=== PATIENT | female | born 1980 ===

== ENCOUNTER → 2016-10-19 | Outpatient (CLI) | payer OTHER ==
--- NOTE | 2016-10-19 15:40 | XR ---
Left foot and left ankle HISTORY: Left ankle sprain, pain, trauma 3 views of the left foot and 3 views of the ankle are submitted. No comparisons Bone mineralization, joint spaces and alignment are maintained. There is a small plantar calcaneal sp ur. Soft tissue swelling noted about the left ankle. IMPRESSION: No fracture or dislocation of the left foot or ankle.
== END ==
LOC: RADXRMAIN 15:13
PROVIDERS: ATTEND Emergency Medicine
DX: S93.402A Sprain of unspecified ligament of left ankle, initial encounter (principal); S93.602A Unspecified sprain of left foot, initial encounter

== ENCOUNTER → 2016-12-11 | Outpatient (CLI) | payer MEDICARE ==
--- NOTE | 2016-12-11 07:49 | US ---
EXAMINATION TYPE: US abdomen complete DATE OF EXAM: 12/11/2016 COMPARISON: NONE CLINICAL HISTORY: R10.11 RUQ PAIN. EXAM MEASUREMENTS: Liver Length: 12.7 cm Gallbladder Wall: 0.2 cm CBD: 0.2 cm Spleen: 9.4 cm Right Kidney: 10.2 x 4.2 x 4.5 cm Left Kidney: 9.9 x 4.9 x 4.6 cm Pancreas: Obscured by bowel gas Liver: wnl Gallbladder: Within the gallbladder neck there is a 1 cm area of hyperechogenicity that creates some shadowing, although this does not appear to be calcified. There is no adjacent gallbladder wall thic kening. Additionally this does appear to be mobile on the supine gallbladder images. Evidence for sonographic Smith's sign: No CBD: wnl Spleen: wnl Right Kidney: wnl Left Kidney: wnl Upper IVC: upper pole obscured by overlying bowel gas Abd Aorta: bifurcation obscured by overlying bowel gas, otherwise wnl The liver is homogenous. The intrahepatic portion of the IVC and proximal abdominal aorta are within normal limits. Common bile duct is unremarkable. The visualized portions of the pancreas are homoge nous. The spleen is unremarkable. Kidneys are symmetric and free of hydronephrosis. No renal lesio ns are seen. IMPRESSION: 1. Focal 1 cm lesion within the gallbladder creating only minimal shadowing. This does appear to be m obile and may represent a cholesterol containing noncalcified gallstone, tumefactive sludge, or less likely gallbladder polyp. Correlation with CT or any prior examinations would be recommended. Alterna tively short-term follow-up could be performed in 6 months for further evaluation as there is no curr ent evidence for acute cholecystitis.
== END | disposition home or self-care (01) ==
LOC: RADUSWWP 06:59
PROVIDERS: ATTEND Family Medicine
DX: K82.8 Other specified diseases of gallbladder (principal); R10.11 Right upper quadrant pain
CPT/HCPCS: 76700

== ENCOUNTER → 2017-01-01 | Outpatient (CLI) | payer MEDICARE ==
--- NOTE | 2017-01-01 09:40 | NM ---
EXAMINATION TYPE: NM hepatobiliary w EF DATE OF EXAM: 01/01/2017 COMPARISON: 05/11/2008 HISTORY: Right upper quadrant pain TECHNIQUE: After the intravenous administration of 5.5 mCi Tc 99m Mebrofenin hepatobiliary scintigrap hy is performed. Immediate images post injection. FINDINGS: There is satisfactory initial accumulation of tracer by the liver. The gallbladder is visualized wit hin 14 minutes. The small bowel activity is noted within 22 minutes. At one hour 8 ounces of oral e nsure plus is given to mimic CCK and gallbladder ejection fraction is calculated at 60 %, in the norm al range. Therefore there is no scintigraphic evidence of cystic or common bile duct obstruction to suggest acute cholecystitis or gallbladder dyskinesia. IMPRESSION: Exam is within normal limits.
== END | disposition home or self-care (01) ==
LOC: RADNMMAIN 06:59
PROVIDERS: ATTEND Family Medicine
DX: R10.11 Right upper quadrant pain (principal)
CPT/HCPCS: 78226; A9537

== ENCOUNTER → 2017-09-27 | Outpatient (CLI) | payer MEDICARE, OTHER ==
--- NOTE | 2017-09-27 16:36 | US ---
EXAMINATION TYPE: Transabdominal DATE OF EXAM: 07/27/17 COMPARISON: NONE CLINICAL HISTORY: O09.521 Supervision of elderly multigravida, EXAM PERFORMED: Transvaginal (TV) and Transabdominal (TA) EXAM MEASUREMENTS: GESTATIONAL AGE / DATING Physician Established: Not yet established Dates by LMP: LMP unknown Dates by First Scan: No previous this is first scan Dates by Current Scan for: (6 weeks/2 days) EDC: 05/21/2018 MATERNAL ANATOMY Uterus: 9.3 x 5.9 x 4.6cm Right Ovary: 3.2 x 2.4 x 1.8cm Left Ovary: 1.7 x 1.6 x 1.7cm Post CDS / Adnexa: wnl Presence of free fluid: no Presence of corpus luteal cyst: best seen in left ovary by TV US = 1.7 x 1.6 x 1.6cm Presence of subchorionic bleed: no GESTATION / SURVEY CRL: 0.6 (6 weeks/2 days) Yolk Sac (normal less than 6mm): 3.7mm Heart Rate: 101 bpm Rhythm: Normal IUP: Viable early IUP Date of LMP: unknown Beta HcG (if available): NA Single, live, IUP,6 weeks/2 days, EDC: 05/21/2018; HR 101bpm. IMPRESSION: Single viable intrauterine corresponding to ultrasound age 6 weeks 2 days with estimated da te of delivery May 21, 2018
== END | disposition home or self-care (01) ==
LOC: RADUSWWP 15:34
PROVIDERS: ATTEND Obstetrics & Gynecology
DX: O09.521 Supervision of elderly multigravida, first trimester (principal); Z3A.00 Weeks of gestation of pregnancy not specified
CPT/HCPCS: 76801; 76817

== ENCOUNTER 2017-10-29 16:46 | Emergency (ER) | payer MEDICARE, OTHER ==
--- NOTE | 2017-10-29 17:33 | ED ---
Female Urogenital HPI - General Source: patient, RN notes reviewed Mode of arrival: ambulatory Limitations: no limitations <Anh Nichols - Last Filed: 10/29/17 20:41> <Virgilio Leung - Last Filed: 11/02/17 15:26> - General Chief complaint: Vaginal Bleeding Stated complaint: Vaginal Bleeding-10 wks Time Seen by Provider: 10/29/17 17:20 - History of Present Illness Initial comments: This is a 37-year-old female who presents to the emergency department with chief complaint of vaginal bleeding. Patient states that she is currently 10 weeks . She states that she sees Dr. Keenan. Patient states that at approximately 4 PM she was taking a shower. She noticed some mild vaginal bleeding. She states that she is currently no longer bleeding. Patient also states that she has been more nauseous and has had more vomiting today than she normally has had. She denies any abdominal pain, fevers or chills, chest pain or shortness of breath, dysuria or hematuria. (Anh Nichols) - Related Data Home Medications Medication Instructions Recorded Confirmed Famotidine [Pepcid] 20 mg PO BID 10/29/17 10/29/17 Pnv No.95/Ferrous Fum/Folic AC 1 tab PO DAILY 10/29/17 10/29/17 [ Multivitamin Tablet] Allergies Allergy/AdvReac Type Severity Reaction Status Date / Time amoxicillin [From Augmentin] AdvReac Nausea & Verified 10/29/17 18:42 Vomiting clavulanic acid AdvReac Nausea & Verified 10/29/17 18:42 [From Augmentin] Vomiting Review of Systems ROS Other: All systems not noted in ROS Statement are negative. <Anh Nichols - Last Filed: 10/29/17 20:41> ROS Other: All systems not noted in ROS Statement are negative. <Virgilio Leung - Last Filed: 11/02/17 15:26> ROS Statement: Those systems with pertinent positive or pertinent negative responses have been documented in the HPI. Past Medical History Past Medical History: No Reported History History of Any Multi-Drug Resistant Organisms: None Reported Past Surgical History: Tonsillectomy Additional Past Surgical History / Comment(s): foot and eye surgery Past Psychological History: Bipolar Smoking Status: Former smoker Past Alcohol Use History: None Reported Past Drug Use History: None Reported <[place] LuisBrian manzanoAnh M - Last Filed: 10/29/17 20:41> General Exam Limitations: no limitations <Anh Nichols - Last Filed: 10/29/17 20:41> <Virgilio Leung - Last Filed: 11/02/17 15:26> - General Exam Comments Initial Comments: General: Awake and alert, well-developed; in no apparent distress. HEENT: Head atraumatic, normocephalic. Pupils are equal, round and reactive to light. Extraocular movements intact. Oropharynx moist without erythema or exudate. Neck: Supple. Normal ROM. Cardiovascular: Regular rate and rhythm. No murmurs, rubs or gallops. Chest symmetrical. Respiratory: Lungs clear to auscultation bilaterally. No wheezes, rales or rhonchi. Normal respiratory effort with no use of accessory muscles. Abdomen: Soft, non-tender, non-distended. No rigidity, rebound or guarding. Normal bowel sounds in all 4 quadrants. Musculoskeletal: Normal ROM, no tenderness bilateral upper and lower extremities. Ambulating normally. Skin: [place], warm and dry without rashes or lesions. Neurological: Alert and oriented x3. CN II-XII grossly intact. Speech is fluent and answers are appropriate. No focal neuro deficits. Psychiatric: Normal mood and affect. No overt signs of depression or anxiety noted. (Anh Nichols) Vital Signs 10/29/17 10/29/17 16:55 20:50 Temperature 98.4 F 98.3 F Pulse Rate 74 81 Respiratory 18 17 Rate Blood Pressure 101/67 110/52 O2 Sat by Pulse 99 99 Oximetry Medical Decision Making - Lab Data Result diagrams: 10/29/17 18:00 10/29/17 18:00 - Radiology Data Radiology results: report reviewed <Anh Nichols - Last Filed: 10/29/17 20:41> - Lab Data Result diagrams: 10/29/17 18:00 10/29/17 18:00 <Virgilio Leung - Last Filed: 11/02/17 15:26> - Medical Decision Making This is a 37-year-old female, currently 10 weeks , who presents to the emergency department with chief complaint of vaginal bleeding. Beta hCG serum quantitative was 24,110.9. Obstetrical ultrasound was obtained and revealed no intrauterine . It did reveal an empty gestational sac. An ultrasound that was obtained last month did show a single intrauterine . These findings were discussed with patient. Patient is to follow- up with her MEDICAL BILLING CLERK within 1-2 days and to have the hCG serum quantitative repeated. Patient is in agreement with this plan. She will be discharged home at this time. (Anh Nichols) Resident/PA attestation: I, Dr. Virgilio Leung, personally saw and examined the patient. I have reviewed and agree with the resident/PA findings, including all diagnostic interpretations and treatment plans as written unless otherwise stated. I was present for the flores portions of any procedures performed and inclusive time noted for any critical care statement. (Virgilio Leung) - Lab Data Lab Results 10/29/17 10/29/17 10/29/17 Range/Units 18:00 18:00 18:00 WBC 6.0 (3.8-10.6) k/uL RBC 3.95 (3.80-5.40) m/uL Hgb 12.1 (11.4-16.0) gm/dL Hct 35.8 (34.0-46.0) % MCV 90.5 (80.0-100.0) fL MCH 30.7 (25.0-35.0) pg MCHC 33.9 (31.0-37.0) g/dL RDW 15.2 (11.5-15.5) % Plt Count 241 (150-450) k/uL Neutrophils % 68 % Lymphocytes % 17 % Monocytes % 11 % Eosinophils % 1 % Basophils % 0 % Neutrophils # 4.1 (1.3-7.7) k/uL Lymphocytes # 1.0 (1.0-4.8) k/uL Monocytes # 0.7 (0-1.0) k/uL Eosinophils # 0.1 (0-0.7) k/uL Basophils # 0.0 (0-0.2) k/uL Sodium 140 (137-145) mmol/L Potassium 4.0 (3.5-5.1) mmol/L Chloride 106 (98-107) mmol/L Carbon Dioxide 21 L (22-30) mmol/L Anion Gap 13 mmol/L BUN 8 (7-17) mg/dL Creatinine 0.73 (0.52-1.04) mg/dL Est GFR (CKD-EPI)AfAm >90 (>60 ml/min/1.73 sqM) Est GFR (CKD-EPI)NonAf >90 (>60 ml/min/1.73 sqM) Glucose 85 (74-99) mg/dL Calcium 9.3 (8.4-10.2) mg/dL Total Bilirubin 0.2 (0.2-1.3) mg/dL AST 27 (14-36) U/L ALT 36 (9-52) U/L Alkaline Phosphatase 80 (38-126) U/L Total Protein 5.8 L (6.3-8.2) g/dL Albumin 3.8 (3.5-5.0) g/dL HCG, Quant 80038.9 mIU/mL Urine Color Urine Appearance (Clear) Urine pH (5.0-8.0) Ur Specific [place] (1.001-1.035) Urine Protein (Negative) Urine Glucose (UA) (Negative) Urine Ketones (Negative) Urine Blood (Negative) Urine Nitrite (Negative) Urine Bilirubin (Negative) Urine Urobilinogen (<2.0) mg/dL Ur Leukocyte Esterase (Negative) Urine RBC (0-5) /hpf Urine WBC (0-5) /hpf Ur Squamous Epith Cells (0-4) /hpf Hyaline Casts (0-2) /lpf Urine Mucus (None) /hpf Blood Type A Positive Blood Type Recheck No 10/29/17 Range/Units 18:00 WBC (3.8-10.6) k/uL RBC (3.80-5.40) m/uL Hgb (11.4-16.0) gm/dL Hct (34.0-46.0) % MCV (80.0-100.0) fL MCH (25.0-35.0) pg MCHC (31.0-37.0) g/dL RDW (11.5-15.5) % Plt Count (150-450) k/uL Neutrophils % % Lymphocytes % % Monocytes % % Eosinophils % % Basophils % % Neutrophils # (1.3-7.7) k/uL Lymphocytes # (1.0-4.8) k/uL Monocytes # (0-1.0) k/uL Eosinophils # (0-0.7) k/uL Basophils # (0-0.2) k/uL Sodium (137-145) mmol/L Potassium (3.5-5.1) mmol/L Chloride (98-107) mmol/L Carbon Dioxide (22-30) mmol/L Anion Gap mmol/L BUN (7-17) mg/dL Creatinine (0.52-1.04) mg/dL Est GFR (CKD-EPI)AfAm (>60 ml/min/1.73 sqM) Est GFR (CKD-EPI)NonAf (>60 ml/min/1.73 sqM) Glucose (74-99) mg/dL Calcium (8.4-10.2) mg/dL Total Bilirubin (0.2-1.3) mg/dL AST (14-36) U/L ALT (9-52) U/L Alkaline Phosphatase (38-126) U/L Total Protein (6.3-8.2) g/dL Albumin (3.5-5.0) g/dL HCG, Quant mIU/mL Urine Color Yellow Urine Appearance Cloudy H (Clear) Urine pH 5.5 (5.0-8.0) Ur Specific [place] 1.020 (1.001-1.035) Urine Protein Trace H (Negative) Urine Glucose (UA) Negative (Negative) Urine Ketones Negative (Negative) Urine Blood Negative (Negative) Urine Nitrite Negative (Negative) Urine Bilirubin Negative (Negative) Urine Urobilinogen <2.0 (<2.0) mg/dL Ur Leukocyte Esterase Negative (Negative) Urine RBC <1 (0-5) /hpf Urine WBC 2 (0-5) /hpf Ur Squamous Epith Cells 1 (0-4) /hpf Hyaline Casts 7 H (0-2) /lpf Urine Mucus Many H (None) /hpf Blood Type Blood Type Recheck - Radiology Data Obstetrical ultrasound impression: There is apparent intrauterine gestational sac that measures 2.5 x 1.2 cm. No yolk sac or pole seen. This is consistent with blighted ovum. No IUP seen at this time. No adnexal mass. ( Anh Nichols) Disposition Is patient prescribed a controlled substance at d/c from ED?: No Time of Disposition: 20:40 <Anh Nichols - Last Filed: 10/29/17 20:41> <Virgilio Leung - Last Filed: 11/02/17 15:26> Clinical Impression: Miscarriage Disposition: HOME SELF-CARE Condition: Good Instructions: Miscarriage (ED) Additional Instructions: Please follow-up with Dr. Keenan within 1-2 days. Please have beta hCG Quant repeated in 48 hours. Please follow up with primary care provider within 1-2 days. Return to emergency department if symptoms should worsen or any concerns arise. Referrals: Bruce Pringle MD [Primary Care Provider] - 1-2 days
[2017-10-29 18:10] LABS: Basophils % (A) 0 %; Eosinophils # (A) 0.1 k/uL (0-0.7); Eosinophils % (A) 1 %; HCT 35.8 % (34.0-46.0); HGB 12.1 gm/dL (11.4-16.0); Lymphocytes % (A) 17 %; MCH 30.7 pg (25.0-35.0); MCHC 33.9 g/dL (31.0-37.0); MCV 90.5 fL (80.0-100.0); Mean Platelet Volume 7.3; Monocytes # (A) 0.7 k/uL (0-1.0); Monocytes % (A) 11 %; Neutrophils # (A) 4.1 k/uL (1.3-7.7); Neutrophils % (A) 68 %; Platelet Count 241 k/uL (150-450); RBC 3.95 m/uL (3.80-5.40); RDW 15.2 % (11.5-15.5)
[2017-10-29 18:20] LABS: ALT 36 U/L (9-52); AST 27 U/L (14-36); Albumin 3.8 g/dL (3.5-5.0); Alkaline Phosphatase 80 U/L (38-126); Anion Gap 13 mmol/L; Blood Urea Nitrogen 8 mg/dL (7-17); Calcium 9.3 mg/dL (8.4-10.2); Carbon Dioxide 21 mmol/L (22-30); Chloride 106 mmol/L (98-107); Glucose 85 mg/dL (74-99); Sodium 140 mmol/L (137-145); Total Bilirubin 0.2 mg/dL (0.2-1.3); Total Protein 5.8 g/dL (6.3-8.2)
[2017-10-29 18:21] LABS: Appearance,Urine Cloudy (Clear); Bilirubin,Urine Negative (Negative); Blood,Urine Negative (Negative); Color,Urine Yellow; Glucose,Urine (UA) Negative (Negative); Hyaline Casts,Urine 7 /lpf (0-2); Ketones,Urine Negative (Negative); Leukocyte Esterase,Urine Negative (Negative); Mucus,Urine Many /hpf; Nitrite,Urine Negative (Negative); PH, Urine 5.5 (5.0-8.0); Protein,Urine Trace (Negative); RBC,Urine <1 /hpf (0-5); Squamous Epithelial Cell,Urine 1 /hpf (0-4); Urobilinogen,Urine <2.0 mg/dL (<2.0); WBC,Urine 2 /hpf (0-5)
[2017-10-29 19:03] LABS: HCG,Quantitative Serum 24110.9 mIU/mL
--- NOTE | 2017-10-29 20:09 | US ---
EXAMINATION TYPE: Transabdominal DATE OF EXAM: 07/27/17 COMPARISON: NONE CLINICAL HISTORY: vag bleeding. Spotting EXAM PERFORMED: Transvaginal (TV) and Transabdominal (TA) EXAM MEASUREMENTS: GESTATIONAL AGE / DATING Physician Established: (10 weeks/6 days) EDC: 05/21/2018 Dates by LMP: (10 weeks/6 days) EDC: 05/21/2018 Dates by First Scan: (6 weeks/2 days) EDC: 05/21/2018 Dates by Current Scan for: Unable to date by today's study MATERNAL ANATOMY Uterus: 9.7 x 5.5 x 6.9 cm Right Ovary: 2.3 c 1.6 x 1.6 cm Left Ovary: 2.7 x 1.6 x 1.4 cm Post CDS / Adnexa: wnl Presence of free fluid: no Presence of corpus luteal cyst: yes GESTATION / SURVEY IUP: No IUP seen at this time. Empty gestational sac seen. Beta HcG (if available): Not available at this time No IUP seen at this time. IMPRESSION: There is apparent intrauterine gestational sac that measures 2.5 x 1.2 cm. No yolk sac or pole seen. This is consistent with blighted ovum. No adnexal mass.
[2017-10-29 20:52] VITALS: BP 110/52; PULSE 81; RESP 17; TEMP 98.3
== END 2017-10-29 20:53 | disposition home or self-care (01) ==
LOC: EC 16:46
DX: O03.9 Complete or unspecified spontaneous abortion without complication (principal); R11.2 Nausea with vomiting, unspecified; Z87.891 Personal history of nicotine dependence; Z79.899 Other long term (current) drug therapy; Z88.0 Allergy status to penicillin
CPT/HCPCS: 36415; 76801; 76817; 80053; 81001; 84702; 85025; 86900; 86901; 99284

== ENCOUNTER → 2017-11-04 | Outpatient (CLI) | payer MEDICARE, OTHER ==
--- NOTE | 2017-11-04 13:46 | US ---
EXAMINATION TYPE: Transabdominal DATE OF EXAM: 07/27/17 COMPARISON: Ultrasound 6 days ago CLINICAL HISTORY: [id number] in heart rate and rhythm comp. Recent US done with GS only see n. No pain or bleeding. LMP in july but doesn't remember date EXAM PERFORMED: Transvaginal (TV) and Transabdominal (TA) EXAM MEASUREMENTS: GESTATIONAL AGE / DATING Dates by LMP: LMP unknown Dates by First Scan: Too early to date Dates by Current Scan for: ( 8 weeks/5 days) EDC: 06/11/2018 MATERNAL ANATOMY Uterus: 11.1 x 6.5 x 4.2 cm Right Ovary: 2.6 x 1.8 x 1.7 cm Left Ovary: 2.6 x 1.5 x 1.5 cm Post CDS / Adnexa: free fluid Presence of free fluid: no Presence of corpus luteal cyst: Right ovarian lesion = 1.5 x 1.0 x 1.3 cm. Left ovarian lesion = 1. 3 x 0.69 x 1.0 cm Presence of subchorionic bleed: no GESTATION / SURVEY MSD: 3.5 cm (5 weeks/8 days) IUP: Gestational sac only seen Date of LMP: July, Beta HcG (if available): Not available at this time There is persistent oval irregular anechoic structure central in the uterus. No significant surroundi ng decidual reaction is seen. If this is gestational sac it is abnormal. No progression from prior. N o yolk sac or pole is seen. Small amount of free fluid in pelvic cul-de-sac is noted on transva ginal evaluation. Both ovaries are seen. There is no suspicious extraovarian adnexal lesion identified bilaterally. IMPRESSION: Abnormal study with suspected spontaneous , too early to visualize intrauterine and ectopic are not entirely excluded. Correlation with beta-hCG values and clinical correlati on advised.
== END | disposition home or self-care (01) ==
LOC: RADUSWWP 12:52
PROVIDERS: ATTEND Obstetrics & Gynecology Obstetrics
DX: O76 Abnormality in fetal heart rate and rhythm complicating labor and delivery (principal); Z3A.08 8 weeks gestation of pregnancy
CPT/HCPCS: 76801; 76817

== ENCOUNTER → 2017-11-08 | Outpatient (CLI) | payer MEDICARE, OTHER ==
[2017-11-08 15:33] LABS: Basophils % (A) 1 %; Eosinophils % (A) 1 %; HCT 35.4 % (34.0-46.0); HGB 11.6 gm/dL (11.4-16.0); Lymphocytes # (A) 1.2 k/uL (1.0-4.8); Lymphocytes % (A) 23 %; MCHC 32.9 g/dL (31.0-37.0); MCV 91.3 fL (80.0-100.0); Mean Platelet Volume 7.5; Monocytes # (A) 0.4 k/uL (0-1.0); Monocytes % (A) 8 %; Neutrophils # (A) 3.3 k/uL (1.3-7.7); Neutrophils % (A) 66 %; Platelet Count 248 k/uL (150-450); RBC 3.88 m/uL (3.80-5.40); RDW 14.9 % (11.5-15.5)
== END | disposition home or self-care (01) ==
LOC: LABPAT 14:52
PROVIDERS: ATTEND Obstetrics & Gynecology Obstetrics
DX: Z01.812 Encounter for preprocedural laboratory examination (principal); O03.9 Complete or unspecified spontaneous abortion without complication
CPT/HCPCS: 36415; 85025; 86850; 86900; 86901

== ENCOUNTER 2017-11-09 10:44 | Day surgery (SDC) | payer MEDICARE, OTHER ==
[2017-11-08 14:37] VITALS: BMI 32.8
[~2017-11-09 10:44] MED LIST: DEXAMETHASONE SOD PHOSPHATE 10 MG/ML 1 ML VIAL IV ONE; LIDOCAINE 1% 20 ML VIAL (10MG/ML) FOR IV START INTRADERMA PRN; MIDAZOLAM 2 MG/2 ML VIAL IV PRN; ONDANSETRON 4 MG/2 ML VIAL IVP ONE; Pre Op ABX Message 1 EACH MISC MISCELLANE ONE; fentaNYL (PF) 50 MCG/ML 2 ML AMP IV PRN
[2017-11-09] MEDS: LACTATED RINGERS 1,000 ML IV SCH ×2 (11:08→11:50)
[2017-11-09 11:10] VITALS: RESP 16
[2017-11-09] MEDS ORDERED: FAMOTIDINE 20 MG/2 ML VIAL IVP ONE (11:13)
[2017-11-09] MEDS ORDERED: SILVER NITRATE APPLICATOR 1 EACH STICK..EA. TOPICAL ONE (11:47)
[2017-11-09] MEDS ORDERED: SUCCINYLCHOLINE CHLORIDE 100 MG/5 ML SYR IV ONE (11:54)
[2017-11-09] MEDS ORDERED: MIDAZOLAM 2 MG/2 ML VIAL ONE (11:54)
[2017-11-09] MEDS ORDERED: PROPOFOL 10 MG/ML 20 ML VIAL IV ONE (11:54)
[2017-11-09] MEDS ORDERED: LIDOCAINE 1% INJ 10MG/ML (20 ML MDV) ONE (11:54)
[2017-11-09] MEDS ORDERED: fentaNYL (PF) 50 MCG/ML 2 ML AMP ONE (11:54)
--- NOTE | 2017-11-09 12:24 | P.OP ---
Date of Procedure: 11/09/17 Preoperative Diagnosis: blighted ovum Postoperative Diagnosis: same Procedure(s) Performed: suction dilation and curettage Anesthesia: DOMENICO Surgeon: Oralia Benedict Estimated Blood Loss (ml): 5 IV fluids (ml): 400 Urine output (ml): 50 Pathology: other (Products of conception) Condition: stable Disposition: PACU Indications for Procedure: Blighted ovum Operative Findings: Moderate amount of products of conception obtained during suction dilation and curettage Description of Procedure: Patient was seen in the preoperative area and informed consent was obtained. Patient agreed and wished to proceed with surgery. Patient was taken the operating suite where general anesthesia was obtained without difficulty by the anesthesia department. She was then prepped and draped in the normal sterile fashion in the dorsal lithotomy position a red rubber catheter was then used to drain the bladder of clear yellow urine. A weighted speculum was placed in the posterior vaginal vault. The cervix was visualized and grasped with a single- tooth tenaculum. The endocervical canal was then dilated to 18 [place]. and a 8 curved suction curet was placed into the cervix toward the endometrium. The suction was activated and a moderate amount of products of conception were obtained, a gentle curettage was then performed to ensure all products had been removed from the endometrium. Afterwards there was minimal bleeding noted. The tenaculum was taken off of the anterior lip of the cervix hemostasis was appreciated. Patient tolerated procedure well all counts were correct 2 and patient was taken the recovery room awake in stable condition
[2017-11-09 12:32] VITALS: TEMP 97
[2017-11-09] MEDS ORDERED: HYDROmorphone 0.5 MG/0.5 ML SYRINGE IVP ONE (12:45)
[2017-11-09] MEDS: HYDROmorphone 0.5 MG/0.5 ML SYRINGE IVP ONE ×2 (12:47→12:50)
[2017-11-09] MEDS ORDERED: IBUPROFEN 200 MG TAB PO ONE (13:05)
[2017-11-09 13:54] VITALS: BP 118/58; PULSE 66
== END 2017-11-09 14:15 | disposition home or self-care (01) ==
LOC: OR 10:44
PROVIDERS: ATTEND Obstetrics & Gynecology Obstetrics
DX: O02.0 Blighted ovum and nonhydatidiform mole (principal); K21.9 Gastro-esophageal reflux disease without esophagitis; Z79.899 Other long term (current) drug therapy; Z88.0 Allergy status to penicillin
CPT/HCPCS: 88305; 59820; J2250; J1100; J2405; J2001; J3010; J0330; J2704; J1170; 86850; 86900; 86901

== ENCOUNTER 2018-09-11 06:14 | Emergency (ER) | payer MEDICARE, OTHER ==
[2018-09-11] MEDS ORDERED: SODIUM CHLORIDE 0.9% 1,000 ML IV STA ×2 (07:09)
[2018-09-11] MEDS ORDERED: ONDANSETRON 4 MG/2 ML VIAL IVP STA (07:09)
--- NOTE | 2018-09-11 07:28 | ED ---
Nausea/Vomiting/Diarrhea HPI - General Chief complaint: Nausea/Vomiting/Diarrhea Stated complaint: Vomiting, Pgt Time Seen by Provider: 09/11/18 07:00 Source: patient, RN notes reviewed Mode of arrival: ambulatory Limitations: no limitations - History of Present Illness Initial comments: This a 37-year-old female who is currently 10 weeks 4 days who states she had the onset yesterday of nausea and vomiting that persisted throughout the evening. No diarrhea no abdominal pain he's had no vaginal bleeding or discharge. She has had intermittent episodes nausea vomiting throughout the thus far. Other modifying factors at this time. The patient did vomit once during the interview. MD complaint: nausea, vomiting, other - Related Data Home Medications Medication Instructions Recorded Confirmed Famotidine [Pepcid] 20 mg PO BID PRN 10/29/17 11/09/17 Previous Rx's Medication Instructions Recorded Ondansetron Odt [Zofran Odt] 4 mg PO Q8HR PRN #10 tab 09/11/18 Allergies Allergy/AdvReac Type Severity Reaction Status Date / Time amoxicillin [From Augmentin] AdvReac Nausea & Verified 11/09/17 11:02 Vomiting clavulanic acid AdvReac Nausea & Verified 11/09/17 11:02 [From Augmentin] Vomiting Review of Systems ROS Statement: Those systems with pertinent positive or pertinent negative responses have been documented in the HPI. ROS Other: All systems not noted in ROS Statement are negative. Past Medical History Past Medical History: No Reported History History of Any Multi-Drug Resistant Organisms: None Reported Past Surgical History: Tonsillectomy Additional Past Surgical History / Comment(s): foot and eye surgery Past Anesthesia/Blood Transfusion Reactions: No Reported Reaction Past Psychological History: Bipolar Smoking Status: Former smoker Past Drug Use History: Marijuana - Past Family History Mother Family Medical History: No Reported History General Exam - General Exam Comments Initial Comments: This is a well-developed well-nourished awake alert oriented 3 female Limitations: no limitations General appearance: alert, in no apparent distress Head exam: Present: atraumatic, normocephalic, normal inspection Eye exam: Present: normal appearance, PERRL, EOMI. Absent: scleral icterus, conjunctival injection, periorbital swelling ENT exam: Present: mucous membranes dry Neck exam: Present: normal inspection. Absent: tenderness, meningismus, lymphadenopathy Respiratory exam: Present: normal lung sounds bilaterally. Absent: respiratory distress, wheezes, rales, rhonchi, stridor Cardiovascular Exam: Present: regular rate, normal rhythm, normal heart sounds. Absent: systolic murmur, diastolic murmur, rubs, gallop, clicks GI/Abdominal exam: Present: soft, normal bowel sounds. Absent: distended, tenderness, guarding, rebound, rigid Extremities exam: Present: normal inspection, full ROM, normal capillary refill. Absent: tenderness, pedal edema, joint swelling, calf tenderness Back exam: Present: normal inspection Neurological exam: Present: alert, oriented X3, CN II-XII intact Psychiatric exam: Present: normal affect, normal mood Skin exam: Present: warm, dry, intact, normal color. Absent: rash Course Vital Signs 09/11/18 06:15 Temperature 98.8 F Pulse Rate 98 Respiratory 18 Rate Blood Pressure 129/87 O2 Sat by Pulse 100 Oximetry Medical Decision Making - Medical Decision Making Patient showing much improved at this time she will be discharged she will get a prescription for Zofran - Lab Data Result diagrams: 09/11/18 06:45 09/11/18 06:45 Lab Results 09/11/18 09/11/18 Range/Units 06:45 06:45 WBC 7.8 (3.8-10.6) k/uL RBC 4.17 (3.80-5.40) m/uL Hgb 11.5 (11.4-16.0) gm/dL Hct 35.5 (34.0-46.0) % MCV 85.1 (80.0-100.0) fL MCH 27.5 (25.0-35.0) pg MCHC 32.3 (31.0-37.0) g/dL RDW 15.4 (11.5-15.5) % Plt Count 269 (150-450) k/uL Neutrophils % 81 % Lymphocytes % 9 % Monocytes % 8 % Eosinophils % 0 % Basophils % 0 % Neutrophils # 6.3 (1.3-7.7) k/uL Lymphocytes # 0.7 L (1.0-4.8) k/uL Monocytes # 0.6 (0-1.0) k/uL Eosinophils # 0.0 (0-0.7) k/uL Basophils # 0.0 (0-0.2) k/uL Sodium 138 (137-145) mmol/L Potassium 3.9 (3.5-5.1) mmol/L Chloride 110 H (98-107) mmol/L Carbon Dioxide 19 L (22-30) mmol/L Anion Gap 9 mmol/L BUN 10 (7-17) mg/dL Creatinine 0.71 (0.52-1.04) mg/dL Est GFR (CKD-EPI)AfAm >90 (>60 ml/min/1.73 sqM) Est GFR (CKD-EPI)NonAf >90 (>60 ml/min/1.73 sqM) Glucose 113 H (74-99) mg/dL Calcium 9.2 (8.4-10.2) mg/dL Total Bilirubin 0.3 (0.2-1.3) mg/dL AST 54 H (14-36) U/L ALT 48 (9-52) U/L Alkaline Phosphatase 105 (38-126) U/L Total Protein 6.3 (6.3-8.2) g/dL Albumin 3.9 (3.5-5.0) g/dL Amylase 38 (30-110) U/L Lipase 21 L (23-300) U/L Disposition Clinical Impression: Nausea/vomiting in , Dehydration Disposition: HOME SELF-CARE Condition: Good Instructions (If sedation given, give patient instructions): Acute Nausea and Vomiting (ED), Nausea and Vomiting in (ED) Prescriptions: Ondansetron Odt [Zofran Odt] 4 mg PO Q8HR PRN #10 tab PRN Reason: Nausea Is patient prescribed a controlled substance at d/c from ED?: No Referrals: Bruce Pringle MD [Primary Care Provider] - 1-2 days
[2018-09-11 07:33] LABS: ALT 48 U/L (9-52); AST 54 U/L (14-36); Albumin 3.9 g/dL (3.5-5.0); Alkaline Phosphatase 105 U/L (38-126); Amylase 38 U/L (30-110); Anion Gap 9 mmol/L; Blood Urea Nitrogen 10 mg/dL (7-17); Calcium 9.2 mg/dL (8.4-10.2); Carbon Dioxide 19 mmol/L (22-30); Chloride 110 mmol/L (98-107); Glucose 113 mg/dL (74-99); Lipase 21 U/L (23-300); Potassium 3.9 mmol/L (3.5-5.1); Sodium 138 mmol/L (137-145); Total Bilirubin 0.3 mg/dL (0.2-1.3); Total Protein 6.3 g/dL (6.3-8.2)
[2018-09-11 07:39] LABS: Basophils % (A) 0 %; Eosinophils % (A) 0 %; HCT 35.5 % (34.0-46.0); HGB 11.5 gm/dL (11.4-16.0); Lymphocytes # (A) 0.7 k/uL (1.0-4.8); Lymphocytes % (A) 9 %; MCH 27.5 pg (25.0-35.0); MCHC 32.3 g/dL (31.0-37.0); MCV 85.1 fL (80.0-100.0); Mean Platelet Volume 7.6; Monocytes # (A) 0.6 k/uL (0-1.0); Monocytes % (A) 8 %; Neutrophils # (A) 6.3 k/uL (1.3-7.7); Neutrophils % (A) 81 %; Platelet Count 269 k/uL (150-450); RBC 4.17 m/uL (3.80-5.40); RDW 15.4 % (11.5-15.5); WBC 7.8 k/uL (3.8-10.6)
[2018-09-11 09:26] VITALS: BP 105/55; PULSE 77; RESP 16; TEMP 98.5
== END 2018-09-11 09:32 | disposition home or self-care (01) ==
LOC: EC 06:14
DX: O21.9 Vomiting of pregnancy, unspecified (principal); O99.281 Endocrine, nutritional and metabolic diseases complicating pregnancy, first trimester; E86.0 Dehydration; Z88.0 Allergy status to penicillin; Z87.891 Personal history of nicotine dependence; Z3A.10 10 weeks gestation of pregnancy
CPT/HCPCS: 36415; 80053; 82150; 83690; 85025; 99284; 96374; 96361 ×2; J2405

== ENCOUNTER 2019-04-12 17:22 | Inpatient (IN) | payer MEDICARE, OTHER ==
[2019-04-12] MEDS ORDERED: DINOPROSTONE 10 MG INSERT.ER VAGINAL ONE (17:32)
--- NOTE | 2019-04-12 17:48 | P.HPOB ---
History of Present Illness H&P Date: 04/12/19 Chief Complaint: IUP at 39 and 6/sevenths weeks This is a 38-year-old 1 para 0 at 39-6/7 weeks that presents to labor and delivery for induction of labor. Patient has been receiving routine care with myself this care has been uncomplicated. Patient does struggle with bipolar symptoms. She has done well throughout the despite that. Patient is noted advanced maternal age and declined genetic testing. On bloodwork this patient has a blood type of A+, rubella status immune, RPR nonreactive, hepatitis B surface antigen negative, HIV negative, she did pass her 1 hour gestational diabetes screen on 01/20/19 with a result of 128, group beta strep is noted to be positive on 03/16/19. Review of Systems Constitutional: Denies chills, Denies fatigue, Denies fever Ears, nose, mouth and throat: Denies headache Cardiovascular: Reports leg edema Respiratory: Denies dyspnea Gastrointestinal: Denies nausea, Denies vomiting Genitourinary: Reports Past Medical History Past Medical History: No Reported History History of Any Multi-Drug Resistant Organisms: None Reported Past Surgical History: Tonsillectomy Additional Past Surgical History / Comment(s): foot and eye surgery Past Anesthesia/Blood Transfusion Reactions: No Reported Reaction Past Psychological History: Bipolar Smoking Status: Former smoker Past Drug Use History: Marijuana - Past Family History Mother Family Medical History: No Reported History Medications and Allergies Allergies Allergy/AdvReac Type Severity Reaction Status Date / Time amoxicillin [From Augmentin] AdvReac Nausea & Verified 04/12/19 17:26 Vomiting clavulanic acid AdvReac Nausea & Verified 04/12/19 17:26 [From Augmentin] Vomiting Exam Osteopathic Statement: *. No significant issues noted on an osteopathic structural exam other than those noted in the History and Physical/Consult. Intake and Output 04/12/19 04/12/19 04/12/19 06:59 14:59 22:59 Other: Weight 94.347 kg Targeted physical exam is performed in this date in general this is a well- nourished well-developed female in no acute distress, breathing is noted to be nonlabored her heart has regular rate and rhythm her abdomen is gravid and appropriate for gestational age, on cervical exam she is 1/70/-3, Cervidil is placed without difficulty. heart tones are noted to be category 1 and she is not silvia. Assessment and Plan (1) Term Current Visit: Yes Status: Acute Code(s): Z34.90 - ENCNTR FOR SUPRVSN OF NORMAL , UNSP, UNSP TRIMESTER SNOMED Code(s): 87337406 (2) Bipolar 1 disorder Current Visit: Yes Status: Acute Code(s): F31.9 - BIPOLAR DISORDER, UNSPECIFIED SNOMED Code(s): 140385378 Plan: Patient is admitted to labor and delivery with plans for Cervidil induction of labor. Patient is counseled on Stadol should she needed for discomfort. If by chance she goes into active labor overnight and cervical changes noted she may also receive epidural. Given the fact that she is group beta strep positive we will start antibiotics once active labor is begun or contractions that are uncomfortable are noted.
[2019-04-12 18:14] LABS: Basophils % (A) 0 %; Eosinophils # (A) 0.1 k/uL (0-0.7); Eosinophils % (A) 1 %; HCT 37.6 % (34.0-46.0); HGB 12.9 gm/dL (11.4-16.0); Lymphocytes # (A) 1.3 k/uL (1.0-4.8); Lymphocytes % (A) 13 %; MCH 32.8 pg (25.0-35.0); MCHC 34.2 g/dL (31.0-37.0); MCV 95.7 fL (80.0-100.0); Mean Platelet Volume 8.3; Monocytes # (A) 0.3 k/uL (0-1.0); Monocytes % (A) 3 %; Neutrophils # (A) 8.3 k/uL (1.3-7.7); Neutrophils % (A) 81 %; Platelet Count 250 k/uL (150-450); RBC 3.93 m/uL (3.80-5.40); RDW 13.7 % (11.5-15.5); WBC 10.2 k/uL (3.8-10.6)
[2019-04-13] MEDS: LACTATED RINGERS 1,000 ML IV SCH ×4 (00:45→23:15)
[2019-04-13] MEDS: BUTORPHANOL 1 MG/ML 1 ML VIAL IV PRN ×2 (01:50→04:59)
[2019-04-13] MEDS ORDERED: LIDOCAINE 0.5% (PF) 5 MG/ML (50 ML SDV) SQ PRN (07:09)
[2019-04-13] MEDS ORDERED: CARBOPROST TROMETHAMINE 250 MCG/ML 1 ML AMP IM PRN (07:09)
[2019-04-13] MEDS ORDERED: OXYTOCIN 10 UNIT/ML 1 ML VIAL IM PRN (07:09)
[2019-04-13] MEDS ORDERED: METHYLERGONOVINE 0.2 MG/ML 1 ML AMP IM PRN (07:09)
[2019-04-13] MEDS ORDERED: TERBUTALINE 1 MG/ML VIAL SQ PRN (07:09)
[2019-04-13] MEDS ORDERED: OXYTOCIN 30 UNITS/500 ML NS 30 UNIT in SALINE 1 500ML.BAG IV SCH (07:15)
[2019-04-13] MEDS ORDERED: BUTORPHANOL 1 MG/ML 1 ML VIAL IV PRN (07:32)
[2019-04-13] MEDS ORDERED: ROPIVACAINE 100 MG, fentaNYL (PF) 200 MCG in SODIUM CHLORIDE 0.9% 76 ML EPIDURAL ONE (09:42)
[2019-04-13] MEDS ORDERED: CITRIC ACID-SODIUM CITRATE 15 ML CUP PO ONE (17:39)
[2019-04-13] MEDS ORDERED: ZOLPIDEM 5 MG TAB PO PRN (17:42)
[2019-04-13] MEDS ORDERED: diphenhydrAMINE 50 MG/ML 1 ML VIAL IVP PRN ×2 (17:42)
[2019-04-13] MEDS ORDERED: ONDANSETRON 4 MG/2 ML VIAL IVP PRN (17:42)
[2019-04-13] MEDS ORDERED: diphenhydrAMINE 50 MG CAP PO PRN (17:42)
[2019-04-13] MEDS ORDERED: NALOXONE 0.4 MG/ML 1 ML VIAL IV PRN (17:42)
[2019-04-13] MEDS ORDERED: diphenhydrAMINE 25 MG CAP PO PRN (17:42)
[2019-04-13] MEDS ORDERED: ACETAMINOPHEN IV (For NPO) 1,000 MG in EMPTY BAG 1 BAG IVPB ONE (17:42)
[2019-04-13] MEDS ORDERED: ACETAMINOPHEN TAB 325 MG TAB PO PRN (17:42)
[2019-04-13] MEDS ORDERED: IBUPROFEN IV 800 MG in SODIUM CHLORIDE 0.9% 250 ML IV ONE (17:44)
[2019-04-13] MEDS ORDERED: OXYTOCIN 20 UNITS/1000 ML NS 1,000 ML IV SCH (17:45)
[2019-04-13] MEDS ORDERED: DEXAMETHASONE SOD PHOS (MDV) 100 MG/10 ML VIAL ONE (17:54)
[2019-04-13] MEDS ORDERED: KETOROLAC 30 MG/ML 1 ML VIAL ONE (17:54)
[2019-04-13] MEDS ORDERED: MORPHINE SULFATE (PF) 0.3 MG/0.3 ML SYR ONE (17:54)
[2019-04-13] MEDS ORDERED: ONDANSETRON 4 MG/2 ML VIAL ONE (17:54)
[2019-04-13] MEDS ORDERED: ePHEDrine SULFATE/0.9% NACL/PF 50 MG/5 ML SYRINGE IV ONE (17:54)
--- NOTE | 2019-04-13 18:59 | P.OP ---
Date of Procedure: 04/13/19 Preoperative Diagnosis: IUP at 40 and 0/sevenths weeks, nonreassuring heart tones remote from delivery Postoperative Diagnosis: Same Procedure(s) Performed: Primary low transverse section Anesthesia: epidural Surgeon: Oralia Benedict Instrument Repairer #1: Jacky Xiong Estimated Blood Loss (ml): 400 IV fluids (ml): 1,000 Urine output (ml): 50 Pathology: other (Placenta) Condition: stable Disposition: other (patient room) Operative Findings: normal uterus tubes and ovaries were appreciated male in occiput posterior presentation delivered at 181 with a weight of 7 lbs. 7 oz. and Apgars of 7 and 9 at one and 5 minutes respectively. Description of Procedure: patient was taken back to the operating suite where epidural anesthesia was found be adequate. She was prepped and draped in the normal sterile fashion in the dorsal supine position. A Pfannenstiel skin incision was made with the scalpel and carried through the underlying layer of fascia. The fascia was then incised in the midline and the incision was extended laterally. The superior aspect of the fascial incision was grasped with Lou clamps, elevated and underlying rectus muscles dissected off sharply. The inferior aspect of the fascial incision was grasped lou clamps, elevated and underlying rectus muscles dissected off sharply. Rectus muscles were in the midline the peritoneum was identified and entered. This incision was then extended superiorly and inferiorly with good visualization the bladder. The bladder blade was then inserted into the pelvis. The vesicouterine peritoneum was identified and the bladder flap was created using sharp and blunt dissection. The bladder blade was then reinserted into the pelvis at this time a scalpel was used to enter the uterus the head was encountered in an occiput posterior presentation and delivered without difficulty. The umbo cord was doubly clamped and cut and the was handed off to awaiting RN. The placenta was then removed manually and the uterus was cleared of all clots and debris. The hysterotomy incision was then closed with 0 Vicryl in a running locked fashion from lateral edge the other and additional suture was used to obtain hemostasis. A small amount bleeding was noted in the midportion of the uterine incision therefore a yniugr-[id number] suture was used to obtain hemostasis. On further inspection on the right side of the uterine incision a small amount of bleeding was noted therefore an additional gpxlpi-[id number]-[id number] suture was used to obtain hemostasis. FloSeal was placed across the uterine incision after the uterus had been returned to the abdomen. On further inspection hemostasis was appreciated. The peritoneum was then loosely reapproximated. The fascial was then closed with 0 Vicryl in a running fashion from one lateral edge the other. The subcutaneous tissue was inspected hemostasis was appreciated and it was closed with 3-0 Vicryl in a running fashion. Skin was then closed with 4-0 Vicryl subcuticular fashion. Steri-Strips and sterile dressings were applied as needed. All counts were correct 2 patient and infant tolerated delivery well and were taken back to the birthing suite.
[2019-04-13] MEDS: SENNOSIDES-DOCUSATE SODIUM 1 EACH TAB PO SCH (23:12)
[2019-04-14] MEDS: LACTATED RINGERS 1,000 ML IV SCH ×3 (02:26→17:55)
[2019-04-14 06:23] LABS: Basophils % (A) 0 %; Eosinophils # (A) 0.1 k/uL (0-0.7); Eosinophils % (A) 0 %; HCT 30.5 % (34.0-46.0); HGB 10.5 gm/dL (11.4-16.0); Lymphocytes % (A) 5 %; MCH 33.1 pg (25.0-35.0); MCHC 34.3 g/dL (31.0-37.0); MCV 96.4 fL (80.0-100.0); Mean Platelet Volume 8.8; Monocytes # (A) 0.7 k/uL (0-1.0); Monocytes % (A) 3 %; Neutrophils # (A) 18.3 k/uL (1.3-7.7); Neutrophils % (A) 90 %; Platelet Count 187 k/uL (150-450); RBC 3.17 m/uL (3.80-5.40); RDW 13.8 % (11.5-15.5); WBC 20.2 k/uL (3.8-10.6)
--- NOTE | 2019-04-14 08:38 | P.PN ---
Progress Note - Text 04/14 820am 38-year-old female status post . Patient has an epidural catheter , Duramorph was dosed after the . Patient seen and evaluated this morning, patient has a VAS of 4 with no complains of nausea vomiting or pruritus
--- NOTE | 2019-04-14 09:58 | P.PNOBGPC ---
Subjective - Subjective Principal diagnosis: POD 1 LTCS NRFHTs Interval history: patient did well overnight. She is ambulating and voiding without difficulty. She is tolerating a regular diet without nausea or vomiting. She had a spontaneous void status post Finn removal this morning. She states her lochia is minimal and she is bottle feeding. She states her pain is well-controlled. Patient reports: Reports appetite normal, Reports voiding normally, Reports pain well controlled, Reports ambulating normally [place]: doing well, bottle feeding Objective - Vital Signs Latest vital signs: Vital Signs Temp Pulse Resp BP Pulse Ox 04/14/19 03:07 97.8 F 80 18 142/75 99 04/13/19 23:58 97.8 F 90 18 121/80 100 04/13/19 21:00 96.0 F L 98 16 141/79 04/13/19 20:30 95.7 F L 78 16 149/76 04/13/19 20:00 96.5 F L 16 141/71 04/13/19 19:45 96.4 F L 90 18 141/74 04/13/19 19:30 97.5 F L 120 H 16 154/71 04/13/19 19:15 96.5 F L 16 97 04/13/19 19:00 99.1 F 103 H 16 126/72 Intake and Output 04/13/19 04/14/19 04/14/19 22:59 06:59 14:59 Output Total 700 Balance -700 Output: Urine 700 Uretheral (Finn) 400 Other: Voiding Method Indwelling Catheter Indwelling Catheter - Exam Extremities: Present: normal, edema Abdomen: Present: normal appearance, soft Incision: Present: normal, dry, intact Uterus: Present: normal, firm - Labs Labs: Abnormal Lab Results - Last 24 Hours (Table) 04/14/19 Range/Units 06:10 WBC 20.2 H (3.8-10.6) k/uL RBC 3.17 L (3.80-5.40) m/uL Hgb 10.5 L (11.4-16.0) gm/dL Hct 30.5 L (34.0-46.0) % Neutrophils # 18.3 H (1.3-7.7) k/uL Assessment and Plan (1) Term Current Visit: Yes Status: Acute Code(s): Z34.90 - ENCNTR FOR SUPRVSN OF NORMAL , UNSP, UNSP TRIMESTER SNOMED Code(s): 14224891 (2) Bipolar 1 disorder Current Visit: Yes Status: Acute Code(s): F31.9 - BIPOLAR DISORDER, UNSPECIFIED SNOMED Code(s): 129174202 (3) S/P section Current Visit: Yes Status: Acute Code(s): Z98.891 - HISTORY OF UTERINE SCAR FROM PREVIOUS SURGERY SNOMED Code(s): 368046438 (4) Non-reassuring electronic monitoring tracing Current Visit: Yes Status: Acute Code(s): O36.8390 - MATERN CARE FOR ABNLT FETL HRT RATE OR RHYM, UNSP TRI, UNSP SNOMED Code(s): 030358436 Plan: patient is doing well postoperatively, will plan to continue routine postoperative care.
[2019-04-14] MEDS: IBUPROFEN 600 MG TAB PO PRN ×2 (10:13→17:54)
[2019-04-14] MEDS: FLUoxetine HCL 20 MG CAP PO SCH (10:16)
[2019-04-14] MEDS: ARIPiprazole 10 MG TAB PO SCH (10:16)
[2019-04-14] MEDS: SENNOSIDES-DOCUSATE SODIUM 1 EACH TAB PO SCH ×2 (11:50→20:58)
[2019-04-14] MEDS: HYDROcodone/APAP 5-325MG 1 EACH TAB PO PRN ×2 (12:20→20:58)
[2019-04-14 23:41] VITALS: RESP 16
[2019-04-15] MEDS: IBUPROFEN 600 MG TAB PO PRN ×2 (02:47→12:22)
[2019-04-15] MEDS: HYDROcodone/APAP 5-325MG 1 EACH TAB PO PRN (07:54)
[2019-04-15] MEDS: ARIPiprazole 10 MG TAB PO SCH (07:54)
[2019-04-15] MEDS: SENNOSIDES-DOCUSATE SODIUM 1 EACH TAB PO SCH (07:54)
[2019-04-15] MEDS: FLUoxetine HCL 20 MG CAP PO SCH (07:55)
--- NOTE | 2019-04-15 08:49 | P.DS ---
Providers Date of admission: 04/12/19 17:22 Expected date of discharge: 04/15/19 Attending physician: Oralia Benedict Primary care physician: Stated None - Discharge Diagnosis(es) (1) Term Current Visit: Yes Status: Acute (2) Bipolar 1 disorder Current Visit: Yes Status: Acute (3) S/P section Current Visit: Yes Status: Acute (4) Non-reassuring electronic monitoring tracing Current Visit: Yes Status: Acute Hospital Course: This 38-year-old 1 para 0 at 40-0/7 weeks presented to labor and delivery for induction of labor. Patient has a known history of bipolar and has been stable on her current medications. Other than that her care has been uncomplicated. Patient was admitted to labor and delivery for Cervidil induction of labor for cervical ripening. Patient was then started on Pitocin augmentation of labor in the morning per hospital protocol. Patient was noted to be 4 cm in the morning and amniotomy was performed. Patient never made any further cervical progress throughout the day. In addition heart tones were noted to be nonreassuring with recurrent late. Therefore patient was taken to the operating suite for primary low transverse section secondary to nonreassuring heart tones. was completed without difficulty for further details on the please see the operative report patient delivered an male at 1814, weight of 7 lbs. 7 oz. with Apgars of 7 and 9 at one and 5 minutes respectively. Patient's postoperative course has been uneventful. On this postop day #2 she is ambulating and voiding without difficulty. She is tolerating a regular diet without nausea or vomiting. She is bottle feeding. She states her lochia is minimal. She is using Thonotosassa/ibuprofen for pain and states it is well-controlled. Patient Condition at Discharge: Good Plan - Discharge Summary Discharge Rx Participant: Yes New Discharge Prescriptions: No Action FLUoxetine HCL [PROzac] 40 mg PO DAILY ARIPiprazole [Abilify] 10 mg PO DAILY Omeprazole [PriLOSEC] 10 mg PO DAILY Discharge Medication List ARIPiprazole [Abilify] 10 mg PO DAILY 04/12/19 [History] FLUoxetine HCL [PROzac] 40 mg PO DAILY 04/12/19 [History] Omeprazole [PriLOSEC] 10 mg PO DAILY 04/12/19 [History] Follow up Appointment(s)/Referral(s): Oralia Benedict DO [Doctor of Osteopathic Medicine] - 2 Weeks Patient Instructions/Handouts: (DC), (GEN) Discharge Disposition: HOME SELF-CARE
[2019-04-15 10:19] VITALS: BP 139/87; PULSE 102; TEMP 98.2
== END 2019-04-15 13:45 | disposition home or self-care (01) | DRG 788 ==
LOC: 4FBP 17:22
PROVIDERS: ADMIT Obstetrics & Gynecology Obstetrics; ATTEND Obstetrics & Gynecology Obstetrics
PROC: 3E0P7VZ Introduction of Hormone into Female Reproductive, Via Natural or Artificial Opening (ICD-10-PCS; 2019-04-12)
PROC: 3E033VJ Introduction of Other Hormone into Peripheral Vein, Percutaneous Approach (ICD-10-PCS; 2019-04-13)
PROC: 10907ZC Drainage of Amniotic Fluid, Therapeutic from Products of Conception, Via Natural or Artificial Opening (ICD-10-PCS; 2019-04-13)
PROC: 00HU33Z Insertion of Infusion Device into Spinal Canal, Percutaneous Approach (ICD-10-PCS; 2019-04-13)
PROC: 3E0R3BZ Introduction of Anesthetic Agent into Spinal Canal, Percutaneous Approach (ICD-10-PCS; 2019-04-13)
PROC: 4A0H74Z Measurement of Products of Conception, Cardiac Electrical Activity, Via Natural or Artificial Opening (ICD-10-PCS; 2019-04-13)
PROC: 4A0H7FZ Measurement of Products of Conception, Cardiac Rhythm, Via Natural or Artificial Opening (ICD-10-PCS; 2019-04-13)
PROC: 4A0H7CZ Measurement of Products of Conception, Cardiac Rate, Via Natural or Artificial Opening (ICD-10-PCS; 2019-04-13)
PROC: 10D00Z1 Extraction of Products of Conception, Low, Open Approach (ICD-10-PCS; principal; 2019-04-13 06:45)
DX: O76 Abnormality in fetal heart rate and rhythm complicating labor and delivery (principal); O99.344 Other mental disorders complicating childbirth; F31.9 Bipolar disorder, unspecified; Z37.0 Single live birth; Z3A.39 39 weeks gestation of pregnancy; Z79.899 Other long term (current) drug therapy; Z87.891 Personal history of nicotine dependence
CPT/HCPCS: 85025; 86850; 86900; 86901; 88307

== ENCOUNTER → 2020-01-25 | Outpatient (CLI) | payer MEDICARE, OTHER ==
--- NOTE | 2020-01-25 15:50 | CT ---
EXAMINATION TYPE: CT sinus wo con DATE OF EXAM: 01/25/2020 COMPARISON: None HISTORY: Chronic headaches and nasal congestion. CT DLP: 556.9 mGycm CONTRAST: 0 mL of Isovue 300 The paranasal sinuses are examined in the axial plane at 2 mm thick sections. Reconstructed images i n the coronal plane were obtained. The maxillary sinuses are clear. The ethmoid air cells are clear. The sphenoid sinuses are clear. Frontal sinuses are hypoplastic. The septum is evaluated. There is septal deviation to the left. Left septal spur is noted. The ostiomeatal units are patent. IMPRESSIONS: 1. No suspicious acute sinus changes.
== END | disposition home or self-care (01) ==
LOC: RADCTMAIN 15:26
PROVIDERS: ATTEND Family Medicine
DX: J32.9 Chronic sinusitis, unspecified (principal)
CPT/HCPCS: 70486

== ENCOUNTER → 2020-11-08 | Outpatient (CLI) | payer MEDICARE, OTHER ==
--- NOTE | 2020-11-11 14:28 | MM ---
Reason for exam: screening (asymptomatic). Baseline mammogram. History: Patient had first child at age 38. Taking hormonal contraceptives for 1 year. Physical Findings: Nurse did not find any significant physical abnormalities on exam. MG Screening Mammo w CAD Bilateral CC and MLO view(s) were taken. There are scattered fibroglandular densities. There is a mass in the right upper outer quadrant at middle depth and ultrasound is recommended. There is an asymmetry in the retro right breast and diagnostic mammogram is recommended. ASSESSMENT: Incomplete: need additional imaging evaluation, BI-RAD 0 RECOMMENDATION: Special view mammogram and ultrasound of the right breast. [facility] will attempt to contact patient to return for supplemental views and ultrasound.
== END | disposition home or self-care (01) ==
LOC: RADMAMWWP 14:19
PROVIDERS: ATTEND Obstetrics & Gynecology Obstetrics
DX: Z12.31 Encounter for screening mammogram for malignant neoplasm of breast (principal)
CPT/HCPCS: 77067

== ENCOUNTER → 2020-12-17 | Outpatient (CLI) | payer MEDICARE, OTHER ==
--- NOTE | 2020-12-18 08:33 | MM ---
Reason for exam: additional evaluation requested from abnormal screening. Last mammogram was performed 1 month ago. History: Patient had first child at age 38. Family history of breast cancer in maternal aunt at age 50. Taking hormonal contraceptives for 1 year. Physical Findings: Nurse did not find any significant physical abnormalities on exam. MG Work Up Mamm w CAD RT Spot compression CC, spot compression MLO, and LM view(s) were taken of the right breast. Prior study comparison: November 08, 2020, bilateral MG screening mammo w CAD. Finding: There is a 9 mm equal density (isodense), lobulated mass in the upper outer quadrant, subareolar position of the right breast. These results were verbally communicated with the patient and result sheet given to the patient on 12/17/20. ASSESSMENT: Incomplete: need additional imaging evaluation, BI-RAD 0 RECOMMENDATION: Ultrasound of the right breast.
--- NOTE | 2020-12-18 08:35 | USB ---
Reason for exam: additional evaluation requested from abnormal screening. History: Patient had first child at age 38. Family history of breast cancer in maternal aunt at age 50. Taking hormonal contraceptives for 1 year. US Breast Workup Limited RT Right limited breast ultrasound including focal area of concern, retroareolar and axilla demonstrates no cystic or solid lesion seen. These results were verbally communicated with the patient and result sheet given to the patient on 12/17/20. ASSESSMENT: Suspicious, BI-RAD 4 RECOMMENDATION: Stereotactic core biopsy of the right breast. Called Dr. Benedict's office with mammographic findings and has scheduled an appointment for the patient for 01/15/21 at 4:[address] Oconnell. Biopsy scheduled for 01/06/21 at 10:30. PRELIMINARY REPORT CALLED AND FAXED TO DR. OCONNELL ON 12/18/20.
== END | disposition home or self-care (01) ==
LOC: RADMAMWWP 14:15
PROVIDERS: ATTEND Obstetrics & Gynecology Obstetrics
DX: R92.8 Other abnormal and inconclusive findings on diagnostic imaging of breast (principal); Z80.3 Family history of malignant neoplasm of breast
CPT/HCPCS: 77065

== ENCOUNTER → 2021-01-06 | Day surgery (SDC) | payer MEDICARE, OTHER ==
[2021-01-06 09:37] VITALS: RESP 16
[2021-01-06 10:45] VITALS: BP 118/64; PULSE 65; TEMP 98.3
--- NOTE | 2021-01-06 11:12 | MM ---
Stereotactic Mammotome core biopsy right breast. HISTORY: Right breast nodule The nodule in question within the right breast were targeted by the undersigned. Procedure was performed by the undersigned. Informed consent was obtained and all of the patients questions were answered. The standard sterile technique was utilized and appropriate local anesthesia was obtained with 1% lidocaine. Mammotome probe was advanced and multiple core samples were obtained and sent to pathology for interpretation. Microclip marker was deployed at the site of biopsy. Post procedural mammogram demonstrates appropriate deployment of radiopaque clip marker. The patient tolerated the procedure well and left the department in stable condition. Pathology results are pending. IMPRESSION: Successful stereotactic core biopsy right breast with pathology results pending. Pathology Results: Benign RIGHT BREAST, STEREOTACTIC CORE BIOPSY: Fibroadenoma and background fibrocystic changes. Recommendation Follow up mammogram of the right breast in 6 months. MTDD
== END ==
LOC: RADMAMWWP 09:24
PROVIDERS: ATTEND Surgery
DX: D24.1 Benign neoplasm of right breast (principal)
CPT/HCPCS: 19081; 88305; A4648; J2001

== ENCOUNTER → 2024-02-02 | Outpatient (CLI) | payer MEDICARE, OTHER ==
--- NOTE | 2024-02-02 18:29 | XR ---
EXAMINATION TYPE: XR cervical spine comp DATE OF EXAM: 02/02/2024 CLINICAL HISTORY: pain COMPARISON: NONE TECHNIQUE: Frontal, lateral, oblique, swimmers, and open mouth view of the cervical spine are obtaine d. FINDINGS: The cervical spine is visualized in its entirety from C1 thru the top of T1 level. It is s atisfactory in alignment without evidence of acute fracture or dislocation. The pre-vertebral soft t issue appears within normal limits. Moderate degenerative narrowing at C5-6 and C6-7 with ventral and dorsal spondylosis. Bilateral neural foraminal encroachment at each of these levels. The C1-C2 artic ulation is unremarkable on the open mouth view. IMPRESSION: No acute fracture or dislocation is seen in the cervical spine.ICD 10 NO FRACTURE, INITI AL EVALUATION [facility], , 02/02/2024 6:27 PM
== END | disposition home or self-care (01) ==
LOC: RADXRMAIN 17:43
PROVIDERS: ATTEND Chiropractor
CPT/HCPCS: 72050

== ENCOUNTER 2024-05-12 20:24 | Emergency (ER) | payer MEDICARE, OTHER ==
[2024-05-12 20:31] VITALS: RESP 18; TEMP 98.6
--- NOTE | 2024-05-12 21:13 | ED ---
Psych HPI - General Chief Complaint: Psychiatric Symptoms Stated Complaint: Mental Health Time Seen by Provider: 05/12/24 21:06 Source: patient, police Mode of arrival: ambulatory - History of Present Illness Initial Comments: 43-year-old female presenting for suicidal ideation. States she has had significant life stressors which has caused her to have suicidal thoughts. Cornelio alejandro plan. States she has a history of psychiatric hospitalizations many years ago. No medical complaints. - Related Data Home Medications Medication Instructions Recorded Confirmed ARIPiprazole [Abilify] 10 mg PO DAILY 04/12/19 01/06/21 FLUoxetine HCL [PROzac] 40 mg PO DAILY 04/12/19 01/06/21 Omeprazole [PriLOSEC] 10 mg PO DAILY 04/12/19 01/06/21 buPROPion HCL [Wellbutrin XL] 300 mg PO DAILY 12/31/20 01/06/21 Allergies Allergy/AdvReac Type Severity Reaction Status Date / Time amoxicillin [From Augmentin] AdvReac Nausea & Verified 05/12/24 20:31 Vomiting clavulanic acid AdvReac Nausea & Verified 05/12/24 20:31 [From Augmentin] Vomiting Review of Systems ROS Statement: Those systems with pertinent positive or pertinent negative responses have been documented in the HPI. ROS Other: All systems not noted in ROS Statement are negative. Past Medical History Past Medical History: Asthma History of Any Multi-Drug Resistant Organisms: None Reported Past Surgical History: Section, Tonsillectomy Additional Past Surgical History / Comment(s): foot and eye surgery wisdom teeth removed Past Anesthesia/Blood Transfusion Reactions: No Reported Reaction Past Psychological History: Bipolar Smoking Status: Current every day smoker Past Alcohol Use History: Occasional Past Drug Use History: Marijuana - Past Family History Mother Family Medical History: Hypertension Additional Family Medical History / Comment(s): brain tumor General Exam General appearance: alert, in no apparent distress Head exam: Present: atraumatic, normocephalic, normal inspection Eye exam: Present: normal appearance, PERRL, EOMI. Absent: scleral icterus, conjunctival injection, periorbital swelling Neurological exam: Present: alert, oriented X3 Psychiatric exam: Present: normal affect, normal mood, suicidal ideation. Absent: homicidal ideation Skin exam: Present: warm, dry, intact, normal color. Absent: rash Course Vital Signs 01/17/25 20:27 Temperature 98.6 F Pulse Rate 82 Respiratory 18 Rate Blood Pressure 117/66 O2 Sat by Pulse 97 Oximetry Medical Decision Making - Medical Decision Making Was pt. sent in by a medical professional or institution ([facility]ALYN Bray, UPPER CUTTER MACHINE, urgent care, hospital, or [facility]...) When possible be specific @ -No Did you speak to anyone other than the patient for history (EMS, parent, family, police, friend...)? What history was obtained from this source @ -No Did you review nursing and triage notes (agree or disagree)? Why? @ -I reviewed and agree with nursing and triage notes Were old charts reviewed (outside hosp., previous admission, EMS record, old EKG, old radiological studies, urgent care reports/EKG's, [facility] records)? Report findings @ -No old charts were reviewed Differential Diagnosis (chest pain, altered mental status, abdominal pain women, abdominal pain men, vaginal bleeding, weakness, fever, dyspnea, syncope, headache, dizziness, GI bleed, back pain, seizure, CVA, palpatations, mental health, musculoskeletal)? @ -Differential Mental Health Depression, anxiety, bipolar, psychosis, schizophrenia, borderline personality, situational depression, adjustment disorder, behavioral disorder, brain tumor, malingering, substance abuse, encephalopathy, medication reaction, dementia, hypothyroidism, degenerative neurologic disorder, lupus.... This is not meant to be all-inclusive list EKG interpreted by me (3pts min.). @ -None X-rays interpreted by me (1pt min.). @ -None done CT interpreted by me (1pt min.). @ -None done U/S interpreted by me (1pt. min.). @ -None done What testing was considered but not performed or refused? (CT, X-rays, U/S, labs)? Why? @ -None What meds were considered but not given or refused? Why? @ -None Did you discuss the management of the patient with other professionals (professionals i.e. KALYN Bray, UPPER CUTTER MACHINE, lab, RT, psych nurse, sr. social media & mobile manager, api product manager, teacher, gift officer, shoe caser)? Give summary @ -I spoke with EPS who recommends discharge with safety plan Was smoking cessation discussed for >3mins.? @ -No Was critical care preformed (if so, how long)? @ -No Were there social determinants of health that impacted care today? How? (Homelessness, low income, unemployed, alcoholism, drug addiction, transportation, low edu. Level, literacy, decrease access to med. care, care home, rehab)? @ -No Was there de-escalation of care discussed even if they declined (Discuss DNR or withdrawal of care, Hospice)? DNR status @ -No What co-morbidities impacted this encounter? (DM, HTN, Smoking, COPD, CAD, Cancer, CVA, ARF, Chemo, Hep., AIDS, mental health diagnosis, sleep apnea, morbid obesity)? @ -None Was patient admitted / discharged? Hospital course, mention meds given and route, prescriptions, significant lab abnormalities, going to OR and other pertinent info. @ -Discharge. This is a 43-year-old female presenting for suicidal ideation. Denies plan. No medical complaints. Patient is cleared to be seen by EPS. EPS recommends discharge with safety plan. I agree with this plan. Case was discussed with my ED attending Dr. Garcia. Undiagnosed new problem with uncertain prognosis? @ -No Drug Therapy requiring intensive monitoring for toxicity (Heparin, Nitro, Insulin, Cardizem)? @ -No Were any procedures done? @ -No Diagnosis/symptom? @ -Suicidal ideation Acute, or Chronic, or Acute on Chronic? @ -Acute Uncomplicated (without systemic symptoms) or Complicated (systemic symptoms)? @ -Uncomplicated Side effects of treatment? @ -No Exacerbation, Progression, or Severe Exacerbation? @ -No Poses a threat to life or bodily function? How? (Chest pain, [place], [place], pneumonia, PE, COPD, DKA, ARF, appy, cholecystitis, CVA, Diverticulitis, Homicidal, Suicidal, threat to staff... and all critical care pts) @ -Not likely at this time Disposition Clinical Impression: Suicidal ideation Disposition: HOME SELF-CARE Condition: Stable Additional Instructions: Please return to the Emergency Department if symptoms worsen or any other concerns. Is patient prescribed a controlled substance at d/c from ED?: No Referrals: Calli Friedman MD [Primary Care Provider] - 1-2 days Time of Disposition: 22:37
[2024-05-12 22:53] VITALS: BP 120/72; PULSE 71
== END 2024-05-12 22:53 | disposition home or self-care (01) ==
LOC: EC 20:24
DX: R45.851 Suicidal ideations (principal); F17.200 Nicotine dependence, unspecified, uncomplicated; Z88.0 Allergy status to penicillin; Z88.8 Allergy status to other drugs, medicaments and biological substances
CPT/HCPCS: 82075; 99284